=== PATIENT | female | born 1935 | race Caucasian/White ===

== ENCOUNTER 2019-05-28 20:44 | Emergency (ER) | payer MEDICARE, OTHER ==
[~2019-05-28] VITALS: Ht 167.6 cm; Wt 72.0 kg
[~2019-05-28 20:44] MED LIST: ACET325T26 PO; ASPI-496 PO; DONE5TAB52 PO; IBUP-1222 PO; LAMO25TA9 PO; MEMA5TAB PO
--- NOTE | 2019-05-28 21:05 | NUR ---
THIS IS AN 84 YEAR OLD FEMALE COMING IN TONIGHT BY VAL FROM HOME. PT LIVES WITH SON AND ACCORDING TO SON ON SCENE PT HAD A SEIZURE TONIGHT THAT LASTED AROUND 5 MINUTES. PER SON SHE HAS HAD ONE PREVIOUS SEIZURE IN WHICH SHE SUFFERED A RIGHT HIP INJURY AND WAS REHABBED AT [facility]. WHILE SHE STAYED AT [facility] SHE WAS RECIEVING LAMICTAL AND SON STATED SHE TOOK TILL SHE RAN OUT WITH NO REFILL ON THE RX. SON STATES THAT THERE WAS NO FOLLOW UP FOR PT AFTER DISCHARGE FROM [facility]. PT HAS HX OF HTN, DEMENTIA AND SEIZURES. SON STATES PT NORMALLY AXOX3 WITH PERIODS OF CONFUSION. PER SON PT SEEMS TO BE IMPROVING WITH THE DEMENTIA AND HAVING LESS PERIODS OF CONFUSION. PT IS PLACED IN BED WITH SEIZURE PRECAUTIONS IN PLACE. NIBP, CARDIAC, AND O2 MONITORING IN PLACE. FAMILY AT BEDSIDE AWAITING MD MALAGON.
--- NOTE | 2019-05-28 21:14 | NUR ---
report received shalom delgado. as
[2019-05-28] MEDS ORDERED: SODIUM CHLORIDE FLUSH 10ML SYR IVF ONE (21:30)
[2019-05-28] MEDS ORDERED: LORazepam 2 MG/ML, 1ML IVPush ONE (21:30)
[2019-05-28] MEDS ORDERED: LORazepam 2 MG/ML, 1ML ONE (21:35)
--- NOTE | 2019-05-28 21:42 | NUR ---
PT MEDICATED PER ORDER. PT AT THIS TIME AXOX3. SON STATES SHE IS BACK TO HER BASELINE. PT TAKEN TO CT. LAB DRAW IS COMPLETED.
[2019-05-28 21:46] LABS: BASOPHILS # (AUTO) 0.01 x10^3/uL (0-0.1); BASOPHILS % (AUTO) 0 % (0-1); EOSINOPHILS # (AUTO) 0.19 x10^3/uL (0-0.4); EOSINOPHILS % (AUTO) 3 % (1-7); LYMPHOCYTES % (AUTO) 15 % (22-44); MD NO; MEAN CORPUSCULAR HEMOGLOBIN 28.5 pg (27.0-34.8); MEAN CORPUSCULAR HGB CONC 31.8 g/dL (32.4-35.8); MEAN CORPUSCULAR VOLUME 89.6 fL (80-100); MEAN PLATELET VOLUME 8.3 fL (7.4-10.4); MONOCYTES # (AUTO) 0.45 x10^3/uL (0.2-0.8); MONOCYTES % (AUTO) 8 % (2-9); NEUTROPHILS # (AUTO) 4.35 x10^3/uL (1.8-6.8); NEUTROPHILS % (AUTO) 74 % (42-75); PLATELET COUNT 237 x10^3/uL (130-400); RED BLOOD COUNT 4.53 x10^6/uL (3.82-5.3); RED CELL DISTRIBUTION WIDTH 15.9 % (9.6-15.2)
--- NOTE | 2019-05-28 21:51 | NUR ---
PT BACK FROM CT NOW.
[2019-05-28 21:54] LABS: ALBUMIN 2.9 g/dL (3.4-5.0); ANION GAP 7 mmol/L (5-15); CALCIUM 8.5 mg/dL (8.5-10.1); CHLORIDE 105 mmol/L (98-107); CREATININE 0.73 mg/dL (0.55-1.02)
--- NOTE | 2019-05-28 22:01 | NUR ---
ct pending labs back pt appears to be sleeping family at bedside call jeffrey in reach vss seizure precs in place.
--- NOTE | 2019-05-28 22:03 | NUR ---
all results back pt up for recheck
[2019-05-28] MEDS ORDERED: LAMOTRIGINE 25 MG TABLET PO ONE (22:11)
[2019-05-28 22:35] VITALS: BP 149/63
== END 2019-05-28 23:09 | disposition home or self-care (01) ==
LOC: ED 21:36
DX: G40.309 Generalized idiopathic epilepsy and epileptic syndromes, not intractable, without status epilepticus (principal); Z87.891 Personal history of nicotine dependence
CPT/HCPCS: 36415; 70450; 80048; 82040; 85025; 93005; 96374; 99284; J2060

== ENCOUNTER 2020-02-04 05:10 | Observation (INO) | payer MEDICARE, OTHER ==
[~2020-02-04] VITALS: Ht 165.1 cm; Wt 61.4 kg
[2020-02-04 06:18] LABS: BASOPHILS # (AUTO) 0.02 x10^3/uL (0-0.1); BASOPHILS % (AUTO) 0 % (0-1); EOSINOPHILS % (AUTO) 2 % (1-7); LYMPHOCYTES # (AUTO) 1.22 x10^3/uL (1-3.4); LYMPHOCYTES % (AUTO) 21 % (22-44); MD NO; MEAN CORPUSCULAR HEMOGLOBIN 28.4 pg (27.0-34.8); MEAN CORPUSCULAR VOLUME 86.1 fL (80-100); MEAN PLATELET VOLUME 7.8 fL (7.4-10.4); MONOCYTES # (AUTO) 0.47 x10^3/uL (0.2-0.8); MONOCYTES % (AUTO) 8 % (2-9); NEUTROPHILS # (AUTO) 4.02 x10^3/uL (1.8-6.8); NEUTROPHILS % (AUTO) 69 % (42-75); PLATELET COUNT 210 x10^3/uL (130-400); RED BLOOD COUNT 4.87 x10^6/uL (3.82-5.3); RED CELL DISTRIBUTION WIDTH 15.7 % (9.6-15.2)
[2020-02-04 06:33] LABS: ALBUMIN 3.3 g/dL (3.4-5.0); ANION GAP 9 mmol/L (5-15); CALCIUM 8.6 mg/dL (8.5-10.1); CHLORIDE 106 mmol/L (98-107)
[2020-02-04 06:41] LABS: ALANINE AMINOTRANSFERASE 17 U/L (12-78); ALKALINE PHOSPHATASE 87 U/L (45-117); BILIRUBIN,TOTAL 0.4 mg/dL (0.2-1.0); CREATININE 0.69 mg/dL (0.55-1.02); TOTAL PROTEIN 6.6 g/dL (6.4-8.2); TROPONIN I < 0.015 ng/mL (0.000-0.045)
--- NOTE | 2020-02-04 06:47 | NUR ---
PT HAS BEEN FELLING DISORENTED WITH DIZZINESS SINCE LAST NIGHT. PT STATED "SHE IS FELLING BETTER TODAY, BUT STILL IS NOT 100%" PT RESTING IN BED WITH MONITOR ATTACHED. NIGHT TIME BABYSITTER WILL CONTINUE TO MONITOR PT VITALS
--- NOTE | 2020-02-04 06:53 | NUR ---
REPORT FROM BENJIE, ASSUME CARE OF PT AT THIS TIME.
--- NOTE | 2020-02-04 07:14 | NUR ---
PT ASSISTED TO BR VIA WC. URINE COLLECTED/SENT TO LAB.
[2020-02-04 08:06] LABS: MICROSCOPIC AUTO
--- NOTE | 2020-02-04 09:02 | NUR ---
PT ABLE TO AMBULATE IN MUSE WITH SBA, PT REPORTS LESS DIZZINESS. ERP NOTIFIED.
[2020-02-04] MEDS ORDERED: ALEN70TA6 PO (09:32)
[2020-02-04] MEDS ORDERED: LISINOPRIL 10 MG TABLET ONE (09:39)
--- NOTE | 2020-02-04 09:50 | NUR ---
PT GIVEN LISINOPRIL PER ERP ORDER FOR HTN. VS UPDATED IN CHART. AWAITING ADMIT BED.
[2020-02-04] MEDS ORDERED: LISINOPRIL 10 MG TABLET PO ONE (10:00)
--- NOTE | 2020-02-04 10:34 | NUR ---
REPORT TO NIHARIKA VEGA READY FOR TRANSPORT.
[2020-02-04] MEDS ORDERED: ACETAMINOPHEN 325 MG TABLET PO PRN (11:00)
[2020-02-04] MEDS ORDERED: POTASSIUM CHLORIDE 20 MEQ TAB.ER.PRT PO ONE (11:00)
[2020-02-04] MEDS ORDERED: ALENDRONATE 70 MG TABLET PO SCH (11:00)
[2020-02-04] MEDS ORDERED: hydrALAzine 20 MG/ML, 1ML IVPush PRN (11:00)
[2020-02-04] MEDS ORDERED: DOCUSATE 100 MG CAPSULE PO PRN (11:00)
[2020-02-04] MEDS ORDERED: LABETALOL 5MG/ML, 20ML IVPush PRN (11:00)
[2020-02-04] MEDS ORDERED: ONDANSETRON 2MG/ML, 2ML IVPush PRN (11:00)
[2020-02-04 11:13] VITALS: BP 174/98
[2020-02-04 11:17] LABS: FREE T4 (FREE THYROXINE) 1.15 ng/dL (0.76-1.46)
[2020-02-04 13:14] LABS: TROPONIN I < 0.015 ng/mL (0.000-0.045)
[2020-02-04 13:54] VITALS: BP 150/83
[2020-02-04] MEDS: MEMANTINE 5MG TABLET PO SCH ×2 (13:59→20:36)
[2020-02-04] MEDS: ENOXAPARIN 40 MG/0.4 ML SQ SCH (13:59)
[2020-02-04] MEDS: LAMOTRIGINE 25 MG TABLET PO SCH ×2 (13:59→20:35)
[2020-02-04 20:16] VITALS: BP_SYST 142; BP_SYST 144; BP_SYST 151; BP_DIAS 83; BP_DIAS 90; BP_DIAS 95
[2020-02-04] MEDS: SODIUM CHLORIDE FLUSH 10ML SYR IVF SCH (20:19)
[2020-02-04] MEDS: DONEPEZIL 5 MG TABLET PO SCH (20:36)
[2020-02-04] MEDS ORDERED: MELATONIN 5 MG TABLET PO PRN (21:00)
[2020-02-05] VITALS (7 sets, daily range): BP systolic 99–162; BP diastolic 65–90
[2020-02-05 04:17] LABS: CALCIUM 8.7 mg/dL (8.5-10.1); CHLORIDE 109 mmol/L (98-107)
[2020-02-05 04:20] LABS: ANION GAP 5 mmol/L (5-15); CREATININE 0.69 mg/dL (0.55-1.02)
[2020-02-05] MEDS ORDERED: MECLIZINE 25 MG TABLET PO PRN (07:30)
[2020-02-05] MEDS: ASPIRIN 81 MG TABLET EC PO SCH (09:20)
[2020-02-05] MEDS: MEMANTINE 5MG TABLET PO SCH ×2 (09:20→21:16)
[2020-02-05] MEDS: ENOXAPARIN 40 MG/0.4 ML SQ SCH (09:21)
[2020-02-05] MEDS: LAMOTRIGINE 25 MG TABLET PO SCH ×2 (09:21→21:00)
[2020-02-05] MEDS: SODIUM CHLORIDE FLUSH 10ML SYR IVF SCH ×2 (09:22→21:00)
[2020-02-05] MEDS: DONEPEZIL 5 MG TABLET PO SCH (21:16)
[2020-02-06 01:31] VITALS: BP 124/71
[2020-02-06 06:31] VITALS: BP 126/73
[2020-02-06] MEDS ORDERED: MECL-101 PO (07:48)
[2020-02-06] MEDS: SODIUM CHLORIDE FLUSH 10ML SYR IVF SCH (09:00)
[2020-02-06] MEDS: MEMANTINE 5MG TABLET PO SCH (09:51)
[2020-02-06] MEDS: ASPIRIN 81 MG TABLET EC PO SCH (09:52)
[2020-02-06] MEDS: LAMOTRIGINE 25 MG TABLET PO SCH (09:52)
== END 2020-02-06 10:05 | disposition home or self-care (01) ==
LOC: ED 07:18 → EDIP 09:23 → INTOOBSV 09:23 → 4WST 11:06
PROVIDERS: ADMIT Hospitalist; ATTEND Internal Medicine Infectious Disease
DX: I10 Essential (primary) hypertension (principal); E87.6 Hypokalemia; F03.90 Unspecified dementia, unspecified severity, without behavioral disturbance, psychotic disturbance, mood disturbance, and anxiety; M81.0 Age-related osteoporosis without current pathological fracture; G40.209 Localization-related (focal) (partial) symptomatic epilepsy and epileptic syndromes with complex partial seizures, not intractable, without status epilepticus; Z87.891 Personal history of nicotine dependence; Z79.899 Other long term (current) drug therapy; Z79.83 Long term (current) use of bisphosphonates
CPT/HCPCS: 36415; 70551; 71045; 80048; 80053; 81001; 83735; 84100; 84439; 84443; 84484; 85025; 93005; 95819; 96372; 97161; 97165; 99285; G0378; J1650

== ENCOUNTER 2020-03-24 07:13 | Emergency (ER) | payer MEDICARE, OTHER ==
[~2020-03-24] VITALS: Ht 162.6 cm; Wt 60.6 kg
[~2020-03-24 07:13] MED LIST changes: +ALEN70TA6 PO; +MECL-101 PO
[2020-03-24] MEDS ORDERED: IBUPROFEN 600 MG TABLET PO ONE (07:30)
[2020-03-24] MEDS ORDERED: METHOCARBAMOL 750 MG TABLET PO ONE (07:30)
--- NOTE | 2020-03-24 07:54 | NUR ---
OFF THE FLOOR TO XRAY
--- NOTE | 2020-03-24 08:22 | NUR ---
PT BACK IN ROOM
--- NOTE | 2020-03-24 08:23 | NUR ---
PT C/O OF BACK PAIN THAT WRAPS INTO HER FLANKS. THE PAIN HAS BEEN PRESENT SINCE 03/19/2020. PT STATES IT STARTED AFTER MOVING A MATTRESS. PT DENIES NUMBNESS AND TINGLING TO EXT'S.
[2020-03-24] MEDS ORDERED: METHOCARBAMOL 750 MG TABLET ONE (08:32)
[2020-03-24] MEDS ORDERED: IBUPROFEN 600 MG TABLET ONE (08:32)
[2020-03-24 08:33] VITALS: BP 151/93
--- NOTE | 2020-03-24 08:35 | NUR ---
PT MEDICATED PER AUG. RAILS UP.
--- NOTE | 2020-03-24 08:36 | NUR ---
Delroy bethea in ED - 03/24/20 at 0837 by RUBENS PT OFF FLOOR TO XRAY
--- NOTE | 2020-03-24 09:00 | NUR ---
pain improved since medicated
--- NOTE | 2020-03-24 09:12 | NUR ---
given discharge. called son who will pick pt up. pt ambulated to discharge window steady gait
== END 2020-03-24 09:18 | disposition home or self-care (01) ==
LOC: ED 08:48
DX: S32.031A Stable burst fracture of third lumbar vertebra, initial encounter for closed fracture (principal); S22.081A Stable burst fracture of T11-T12 vertebra, initial encounter for closed fracture; X58.XXXA Exposure to other specified factors, initial encounter; Y93.89 Activity, other specified; Y92.89 Other specified places as the place of occurrence of the external cause; Y99.8 Other external cause status
CPT/HCPCS: 72072; 72110; 99284

== ENCOUNTER 2020-03-26 18:39 | Emergency (ER) | payer MEDICARE, OTHER ==
[~2020-03-26] VITALS: Ht 157.5 cm; Wt 62.7 kg
[2020-03-26 19:26] LABS: BASOPHILS % (AUTO) 1 % (0-1); EOSINOPHILS % (AUTO) 1 % (1-7); LYMPHOCYTES % (AUTO) 22 % (22-44); MEAN CORPUSCULAR HEMOGLOBIN 27.9 pg (27.0-34.8); MEAN CORPUSCULAR HGB CONC 32.9 g/dL (32.4-35.8); MEAN PLATELET VOLUME 8.1 fL (7.4-10.4); MONOCYTES % (AUTO) 10 % (2-9); NEUTROPHILS % (AUTO) 67 % (42-75); PLATELET COUNT 240 x10^3/uL (130-400); RED BLOOD COUNT 4.83 x10^6/uL (3.82-5.3); RED CELL DISTRIBUTION WIDTH 14.2 % (9.6-15.2)
[2020-03-26 19:33] LABS: MD NO
[2020-03-26 19:37] LABS: ALANINE AMINOTRANSFERASE 20 U/L (12-78); ALBUMIN 3.5 g/dL (3.4-5.0); ANION GAP 9 mmol/L (5-15); CALCIUM 8.8 mg/dL (8.5-10.1); CHLORIDE 101 mmol/L (98-107); CREATININE 0.72 mg/dL (0.55-1.02)
[2020-03-26 19:39] LABS: ALKALINE PHOSPHATASE 93 U/L (45-117); BILIRUBIN,TOTAL 0.6 mg/dL (0.2-1.0); TOTAL PROTEIN 7.2 g/dL (6.4-8.2)
[2020-03-26 19:41] LABS: MICROSCOPIC AUTO
--- NOTE | 2020-03-26 21:11 | NUR ---
Pt to rm from lobby and care assumed. ERP at bedside to eval.
--- NOTE | 2020-03-26 21:15 | NUR ---
Pt bib son with c/o L flank/back pain since Wednesday. Pt states pain started while she was making her bed. Pt was seen in ER at that time. Pt states pain is getting worse and the meds she received upon D/C are not helping. Pain is worse with palpation and movement. Pt denies urinary symptoms. Denies N/V. BP and pulse ox monitor in place. Call light in reach.
[2020-03-26] MEDS ORDERED: ONDANSETRON 2MG/ML, 2ML IVPush ONE (21:30)
[2020-03-26] MEDS ORDERED: MORPHINE SULFATE 4 MG/ML, 1ML IVPush PRN (21:30)
[2020-03-26] MEDS ORDERED: ONDANSETRON 2MG/ML, 2ML ONE (21:55)
[2020-03-26] MEDS ORDERED: MORPHINE SULFATE 4 MG/ML, 1ML ONE (21:55)
--- NOTE | 2020-03-26 22:00 | NUR ---
Pt in CT. To be medicated upon return.
[2020-03-26] MEDS ORDERED: OMNIPAQUE 350 MG/ML, 100ML BOTTLE ONE (22:08)
--- NOTE | 2020-03-26 22:35 | NUR ---
Pt returned from CT. Ambulated to BR with assist. Pt medicated per MAR for continued pain to L flank. Call light in reach. No further needs expressed.
--- NOTE | 2020-03-26 23:14 | NUR ---
Pt resting comfortably. States pain feels better after meds. Call light in reach. No further needs expressed.
--- NOTE | 2020-03-27 00:09 | NUR ---
Pt up to BR with steady gait. Pt pain free at this time. Pt to be d/c home. Call made to son for ride. Left message. Pt to be d/c when ride can be found.
[2020-03-27 00:31] VITALS: BP 161/91
== END 2020-03-27 00:35 | disposition home or self-care (01) ==
LOC: ED 21:32
DX: S22.089A Unspecified fracture of T11-T12 vertebra, initial encounter for closed fracture (principal); S39.012A Strain of muscle, fascia and tendon of lower back, initial encounter; N30.01 Acute cystitis with hematuria; I10 Essential (primary) hypertension; Z87.891 Personal history of nicotine dependence; X58.XXXA Exposure to other specified factors, initial encounter; Y93.89 Activity, other specified; Y92.89 Other specified places as the place of occurrence of the external cause; Y99.8 Other external cause status
CPT/HCPCS: 36415; 72131; 74177; 80053; 81001; 85025; 87086; 96374; 96375; 99285; J2270; J2405; Q9967